=== PATIENT | female | born 1950 | race Caucasian/White ===

== ENCOUNTER → 2016-08-26 | Outpatient (CLI) | payer MEDICARE, OTHER ==
[~2016-08-26] MED LIST: ACET-62 PO; BECL8.7A5 INH; BIO CLEANSE PO; FLUT16SP EA NOSTRIL; LACT1CAP73 PO; LEVO25TA4 PO; ROSU10TA25 PO; UBID100C10 PO
== END ==
LOC: WC.BC 14:50
DX: Z12.31 Encounter for screening mammogram for malignant neoplasm of breast (principal); N64.59 Other signs and symptoms in breast
CPT/HCPCS: 77063; G0202